=== PATIENT | female | born 1965 | race Caucasian/White ===

== ENCOUNTER 2023-11-03 19:28 | Emergency (ER) | payer BC ==
[2023-11-03 19:50] VITALS: BP 138/92; PULSE 76; RESP 20; TEMP 98.3; BMI 28.3
[2023-11-03] MEDS ORDERED: KETOROLAC TROMETHAMINE 60 MG/2 ML VIAL ONE (20:13)
[2023-11-03] MEDS: KETOROLAC TROMETHAMINE 60 MG/2 ML VIAL IM ONE (20:17)
[2023-11-03] MEDS: ACETAMINOPHEN 1000 MG/100 ML BAG IVPB ONE (20:25)
[2023-11-03 20:30] LABS: HEMOGLOBIN 13.6 G/dL (10.7-15.3); MCHC 31.7 g/dl (32.0-36.0); MEAN CELL VOLUME 94.6 fl (80-96); MEAN PLT VOLUME 7.6 fl (7.5-11.1); PLATELET COUNT 198.4 10^3/uL (134-434); RBC 4.55 10^6/uL (3.60-5.2); RDW 13.4 % (11.6-15.6)
== END 2023-11-03 21:43 | disposition home or self-care (01) ==
LOC: EDBD 19:28 → FER 19:28
PROC: 3E033NZ Introduction of Analgesics, Hypnotics, Sedatives into Peripheral Vein, Percutaneous Approach (ICD-10-PCS; principal; 2023-11-03)
PROC: 3E0133Z Introduction of Anti-inflammatory into Subcutaneous Tissue, Percutaneous Approach (ICD-10-PCS; 2023-11-03)
DX: M25.531 Pain in right wrist (principal)
CPT/HCPCS: 36415; 73110-TC-RT-FY; 73130-TC-RT-FY; 85027; 85651; 99284-25; J0131